=== PATIENT | male | born 1945 | race Caucasian/White ===

== ENCOUNTER 2023-01-05 19:22 | Emergency (ER) | payer OTHER ==
[~2023-01-05] VITALS: Ht 188 cm; Wt 88.3 kg
[2023-01-05 20:27] LABS: Basophils # (auto) 0.1 10 ^3/uL (0-0.2); Basophils % (auto) 0.6 % (0.0-2.0); Eosinophils # (auto) 0 10 ^3/uL (0-0.8); Eosinophils % (auto) 0.3 % (0.0-7.0); Hematocrit 44.3 % (41.0-53.0); Hemoglobin 15.4 g/dL (13.5-17.5); Lymphocytes # (auto) 2.2 10 ^3/uL (0.4-5.4); Lymphocytes % (auto) 14.9 % (10.0-50.0); Mean Corpuscular Hemoglobin 30.1 pg (28.0-32.0); Mean Corpuscular Hgb Conc. 34.7 g/dL (32.0-36.0); Mean Corpuscular Volume 86.8 fL (80.0-100.0); Monocytes # (auto) 1.3 10 ^3/uL (0-1.3); Monocytes % (auto) 8.7 % (0.0-12.0); Neutrophils % (auto) 75.5 % (37.0-80.0); Nucleated Red Blood Cells % 0.1 %; White Blood Cell 14.6 10^3/uL (4.4-10.8)
[2023-01-05 20:41] LABS: Albumin 3.7 g/dL (3.4-5.0); BUN/Creatinine Ratio 22.6; Calcium 8.7 mg/dL (8.5-10.1); Potassium 3.9 mmol/L (3.5-5.1)
[2023-01-05 20:52] LABS: Bilirubin, Total 1.1 mg/dL (0.2-1.0); Total Protein 7.3 g/dL (6.4-8.2)
[2023-01-05] MEDS ORDERED: CEFTRIAXONE SODIUM 2 GM in D5W 5% 50 ML IV ONE (22:30)
[2023-01-05] MEDS ORDERED: VANCOMYCIN 1GM/250ML 250 ML IV ONE (22:30)
[2023-01-06] MEDS ORDERED: cefTRIAXone 1GM/50ML D5W 50 ML IV ONE ×2 (01:00→01:30)
[2023-01-06 02:17] VITALS: BP 146/68
== END 2023-01-06 02:21 | disposition home or self-care (01) ==
LOC: ER 19:22
DX: H44.002 Unspecified purulent endophthalmitis, left eye (principal); H10.32 Unspecified acute conjunctivitis, left eye
CPT/HCPCS: 36415; 70486; 80053; 85025; 96365; 96366; 96367; 99285; J0696; J3370; J7060; 96368